=== PATIENT | female | born 1985 | race American Indian/Alaskan Native ===

== ENCOUNTER 2021-01-06 05:00 | Emergency (ER) | payer MEDICAID ==
[2021-01-06 05:30] VITALS: BP 123/84
[2021-01-06] MEDS ORDERED: ACETAMINOPHEN 325 MG TAB PO ONE (05:33)
--- NOTE | 2021-01-06 06:17 | XRay Report ---
RIGHT ANKLE 3 VIEWS INDICATION / CLINICAL INFORMATION: Right ankle pain and swelling. COMPARISON: None available. FINDINGS: BONES / JOINT(S): No acute fracture or subluxation. No significant arthritis. SOFT TISSUES: There is mild soft tissue swelling involving the hindfoot, best seen anteriorly. ADDITIONAL FINDINGS: None. IMPRESSION: No acute osseous abnormality. Signer Name: Kip Steve MD Signed: 01/06/2021 6:13 AM Workstation Name: [id number]
== END 2021-01-06 06:00 | disposition left against medical advice (07) ==
LOC: ED 05:00
DX: M79.671 Pain in right foot (principal); Z53.21 Procedure and treatment not carried out due to patient leaving prior to being seen by health care provider